=== PATIENT | male | born 1960 | race Caucasian/White ===

== ENCOUNTER → 2019-11-30 14:00 | Outpatient (BNVA) | payer OTHER, SELFPAY | PROVIDERS: PCP Physician Assistant Medical; Referring Provider Physician Assistant Medical; Visit Provider Physician Assistant | DX: Z01.812 Encounter for preprocedural laboratory examination (principal); M16.12 Unilateral primary osteoarthritis, left hip; G89.29 Other chronic pain; M54.9 Dorsalgia, unspecified; G62.9 Polyneuropathy, unspecified; I10 Essential (primary) hypertension; D64.9 Anemia, unspecified; F41.8 Other specified anxiety disorders; Z91.012 Allergy to eggs | CPT/HCPCS: 99214 ==

== ENCOUNTER 2019-12-04 05:34 | Inpatient (IN) | payer OTHER, SELFPAY ==
[2019-11-21 11:41] VITALS: BMI 28.7
[2019-11-21 12:18] VITALS: BP 137/74; PULSE 69; RESP 16; O2SAT 98
--- NOTE | 2019-11-21 12:26 | HO.ANESPROP2 ---
Documented by User: Annabella Martínez 12/01/19 08:29 HPI - Anesthesia Eval Consult details Narrative: 59 yo M for L FAVIAN pending labs PCP cleared, renal cleared (Was sent for urgent renal eval by PCP for worsening creat. OK to proceed by renal if creat stabilizes/improves. Creat 1.9 to 1.7) [facility] Past Medical History Medical History Anemia Anxiety Chronic back pain Degenerative disc disease Depression Hip pain History of intravenous drug abuse History of positive PPD Hx of chronic kidney disease Hx of hepatitis C Hypertension Knee pain Low back pain Peripheral neuropathy Sleep apnea Thrombocytopenia Family History Family History Father No problems noted. Mother No problems noted. Family history of problems with anesthesia: No Surgical History Surgical History History of right hip replacement Status post total hip resurfacing History of Problems with Anesthesia: No Social History Social History Household Members Other:: SISTER Are you a primary caregiver services home to a significant other at home: No Do you presently have visiting nurse or other home services: No Smoking Status: Current every day smoker Packs Per Day: 1 Cigarettes Per Day: 20.0 Years Smoked: 50 Patient Interested in Nicotine Replacement: No Patient Given Instructions on How to Stop Smoking: Yes Date Education Initiated: 11/21/19 Second Hand Smoke Exposure: Yes Use of substances other than those prescribed or required for medical reasons: No Have you been hit, kicked, punched, or otherwise hurt by someone within the past year? If so, by whom?: No Spiritual Healthcare Practices: NONE Scientologist Healthcare Practices: NONE Cultural Healthcare Practices: NONE Advance Directives: No Advance Directives Information Provided: No Advance Directives on File: No Recently lost weight without trying: No Meds Allergies Allergy/AdvReac Type Severity Reaction Status Date / Time eggs Allergy Unknown Unknown Uncoded 11/21/19 12:09 Home Medications Medication Instructions Recorded Confirmed Type amlodipine 10 mg tablet 10 mg PO DAILY 11/06/19 11/21/19 History clonidine HCl 0.1 mg tablet 0.1 mg PO TID 11/06/19 11/21/19 History diazepam 10 mg tablet 10 mg PO TID PRN 11/06/19 11/21/19 History lisinopril 20 mg tablet 20 mg PO DAILY 11/06/19 11/21/19 History nicotine 21 mg/24 hr daily 1 patch TOPICAL DAILY 11/06/19 11/21/19 History transdermal patch omeprazole 40 mg capsule,delayed 40 mg PO DAILY 11/06/19 11/21/19 History release pregabalin 200 mg capsule 200 mg PO BID cap 11/06/19 11/21/19 History Exam Exam Date and Time: November 21, 2019 1226 Height,Weight and Vital Signs: Height 5 ft 10 in Weight 90.718 kg Last Vital Signs Pulse 69 11/21/19 12:18 Resp 16 11/21/19 12:18 BP 137/74 11/21/19 12:18 Pulse Ox 98 11/21/19 12:18 Pertinent Lab Results Pertinent Lab Results: Laboratory Tests 08/23/19 11/21/19 15:40 13:26 WBC 9.9 Hgb 14.1 Hct 43.3 Plt Count 164 Sodium 138 Potassium 4.4 Chloride 104 BUN 24 H Creatinine 1.76 H Narrative Narrative: EKG 08/23/19: SB @55, marked SA Airway Mallampati Class: II TM Dist: >3cm Neck ROM: Limited (r/t to disc disease, no prev surgery) Denture: Upper and Lower (Doesnt wear) Heart: RRR Lungs: CTAB Assessment and Plan Assessment Anesthesia Assessment: Anesthesia Plan Discussed, Smoking Cess. Discussed and PAT Visit Documented by User: Tomás Monte MD 12/04/19 07:32 PMFSH Past Medical History Medical History Anemia Anxiety Chronic back pain Degenerative disc disease Depression Hip pain History of intravenous drug abuse History of positive PPD Hx of chronic kidney disease Hx of hepatitis C Hypertension Knee pain Low back pain Peripheral neuropathy Sleep apnea Thrombocytopenia Family History Family History Father No problems noted. Mother No problems noted. Surgical History Surgical History History of right hip replacement Status post total hip resurfacing Social History Social History Household Members Other:: SISTER Are you a primary caregiver services home to a significant other at home: No Do you presently have visiting nurse or other home services: No Smoking Status: Current every day smoker Packs Per Day: 1 Cigarettes Per Day: 20.0 Years Smoked: 50 Patient Interested in Nicotine Replacement: No Patient Given Instructions on How to Stop Smoking: Yes Date Education Initiated: 11/21/19 Second Hand Smoke Exposure: Yes Use of substances other than those prescribed or required for medical reasons: No Have you been hit, kicked, punched, or otherwise hurt by someone within the past year? If so, by whom?: No Spiritual Healthcare Practices: NONE Scientologist Healthcare Practices: NONE Cultural Healthcare Practices: NONE Advance Directives: No Advance Directives Information Provided: No Advance Directives on File: No Recently lost weight without trying: No Meds Allergies Allergy/AdvReac Type Severity Reaction Status Date / Time eggs Allergy Unknown Unknown Uncoded 11/21/19 12:09 Home Medications Medication Instructions Recorded Confirmed Type amlodipine 10 mg tablet 10 mg PO DAILY 11/06/19 11/21/19 History clonidine HCl 0.1 mg tablet 0.1 mg PO TID 11/06/19 11/21/19 History diazepam 10 mg tablet 10 mg PO TID PRN 11/06/19 11/21/19 History lisinopril 20 mg tablet 20 mg PO DAILY 11/06/19 11/21/19 History nicotine 21 mg/24 hr daily 1 patch TOPICAL DAILY 11/06/19 11/21/19 History transdermal patch omeprazole 40 mg capsule,delayed 40 mg PO DAILY 11/06/19 11/21/19 History release pregabalin 200 mg capsule 200 mg PO BID cap 11/06/19 11/21/19 History Assessment and Plan Assessment Anesthesia Assessment: Anesthesia Plan Discussed and PAT Visit Final Anesthetic Review NPO: Yes ASA Class: III Final Preanesthetic Review: No Changes in Pt Med Stat, Meds/Allgs Chart Reviewed, Consent Obtained/Reviewed and Anes Risks/Benef Reviewed Patient Risk: Intermediate Procedure Risk: Intermediate Anesthetic Plan Anesthetic Plan: GA Disposition: Standard PACU
[2019-11-21 14:05] LABS: MANUAL DIFF FLAG NO
[2019-11-21 14:09] LABS: Basophils Absolute Auto 0.1 X10*3/uL (0.0-0.2); Basophils Percent Auto 0.7 % (0-2); Eosinophils Absolute Auto 0.4 X10*3/uL (0.0-0.4); Eosinophils Percent Auto 4.4 % (0-4); Hematocrit 43.3 % (42-52); Hemoglobin 14.1 g/dl (14.0-18.0); Imm Gran Abs Auto 0.04 X10*3/uL (0.00-0.03); Imm Gran Pct Auto 0.4 % (0.0-0.4); Lymphocytes Absolute Auto 3.2 X10*3/uL (1.2-4.9); Lymphocytes Percent Auto 32.6 % (20-40); Mean Corpuscular HGB Conc 32.6 g/dl (31.0-36.0); Mean Corpuscular Hemoglobin 31.8 pg (27.0-33.0); Mean Corpuscular Volume 97.5 fL (80-98); Mean Platelet Volume 10.7 fL (9.4-12.4); Monocytes Absolute Auto 0.6 X10*3/uL (0.1-1.2); Monocytes Percent Auto 5.7 % (2-11); Neutrophils Absolute Auto 5.6 X10*3/uL (2.0-8.3); Neutrophils Percent Auto 56.2 % (45-73); Platelet Count 164 X10*3/uL (160-400); Red Blood Count 4.44 X10*6/uL (4.60-5.80); Red Cell Distribution Width 13.2 % (11.0-16.0); White Blood Count 9.9 X10*3/uL (4.8-10.8)
[2019-11-21 15:17] LABS: MRSA Nasal PCR NEGATIVE (Negative); SA Nasal PCR NEGATIVE (Negative)
--- NOTE | 2019-12-03 20:22 | MHC.SHP ---
Pre-Procedural Eval Section A The patient is an INPATIENT: No Changes since office visit: No Cold of Flu in the past 2 weeks, No New Medical Problems, No Changes in Medication and No Patient answered all questions The History & Physical has been completed within 30 days and I have reviewed it.: Yes Section B Chief Complaint: Osteoarthritis Left Hip, Avascular Necrosis Allergies: Allergies Allergy/AdvReac Type Severity Reaction Status Date / Time eggs Allergy Unknown Unknown Uncoded 11/21/19 12:09 Plan Patient has been examined and remains a candidate for the planned procedure
[2019-12-04] VITALS (15 sets, daily range): BP systolic 138–196; BP diastolic 87–107; PULSE 74–112; RESP 16–20; TEMP 36.1–37.7; O2SAT 92–99
[2019-12-04 06:59] LABS: SARS COV2 PCR INHOUSE NEGATIVE (Negative)
[2019-12-04] MEDS: Gabapentin 600 MG TABLET PO (07:02)
[2019-12-04] MEDS: oxyCODONE HCl ER 10 MG TAB.ER.12H PO (07:03)
[2019-12-04] MEDS: Lactated Ringers 1,000 ML 100 ML IVCONT ×2 (07:03→13:25)
--- NOTE | 2019-12-04 09:29 | PM.PRCOR ---
Brief Operative Note Date of procedure: 12/04/19 Pre-op diagnosis: OA LEFT HIP Post-op diagnosis: same Procedure: LEFT FAVIAN Anesthesia: ZAIREA Surgeon: Sharon Fink Program Manager Environmental Planning: Federico Cerrato Estimated blood loss (mL): 150 Condition: stable Disposition: PACU
[2019-12-04] MEDS: oxyCODONE HCl Immed Release 5 MG TABLET PO (10:43)
[2019-12-04] MEDS: ceFAZolin Sodium/Dextrose,Iso 2 GM/50 ML PIGGYBACK IV (13:34)
[2019-12-04] MEDS: Acetaminophen 325 MG TABLET 650 MG PO ×2 (13:47→19:54)
--- NOTE | 2019-12-04 14:01 | P.HPIM_ITS ---
History of Present Illness Date of Service: 12/04/19 <Tabitha Adorno NP - Last Filed: 12/04/19 14:17> Chief Complaint: Medical Consultation <Tabitha Adorno NP - Last Filed: 12/04/19 14:17> 59 year old man with history of Hypertension, GERD and chronic pain admitted by orthopedic surgery and is status post Left hip arthroplasty. He has a moderate amount of pain at this time. His vital signs are stable. No new labs drawn. She has been able to drink with no nausea. He is resting in bed with no acute medical complaints. <Tabitha Adorno NP - Last Filed: 12/04/19 14:17> Review of Systems Review of Systems: Denies any recent fever chills or decrease in appetite respiratory denies any shortness of breath or cough cardiovascular is adjustment of any PND or edema gastrointestinal denies any dysphagia abdominal pain nausea vomiting or diarrhea genitourinary denies any dysuria frequency or hematuria musculoskeletal left hip pain neuropsych denies any weakness or seizures all other systems reviewed are negative <Tabitha Adorno NP - Last Filed: 12/04/19 14:17> [facility] Medical History: Medical History (Updated 12/08/19 @ 00:00 by Carmita Funez) Anemia Anxiety Chronic back pain Degenerative disc disease Depression Hip pain History of intravenous drug abuse History of positive PPD Hx of chronic kidney disease Hx of hepatitis C Hypertension Knee pain Low back pain Peripheral neuropathy Primary osteoarthritis of left hip Sleep apnea Thrombocytopenia <Tabitha Adorno NP - Last Filed: 12/04/19 14:17> Family History: Family History Father No problems noted. Mother No problems noted. <Tabitha Adorno NP - Last Filed: 12/04/19 14:17> Surgical History: Surgical History (Updated 12/06/19 @ 10:13 by Federico Cerrato PA-C) History of right hip replacement Status post total hip resurfacing <Tabitha Adorno NP - Last Filed: 12/04/19 14:17> Social History: Social History Household Members: Family Housing: Apartment Smoking Status: Current every day smoker Packs Per Day: 1 Cigarettes Per Day: 20.0 Years Smoked: 50 Second Hand Smoke Exposure: No service: Yes (AT 16 YRS OF AGE NONE NOW) Current occupational status: disabled <Tabitha Adorno NP - Last Filed: 12/04/19 14:17> Meds Allergies/Adverse reactions: Allergies Allergy/AdvReac Type Severity Reaction Status Date / Time eggs Allergy Unknown Unknown Uncoded 11/21/19 12:09 <Tabitha Adorno NP - Last Filed: 12/04/19 14:17> Home medications: Home Medications Medication Instructions Recorded Confirmed Type amlodipine 10 mg PO DAILY 12/04/19 12/04/19 History clonidine HCl 0.1 mg PO TID 12/04/19 12/04/19 History diazepam 10 mg PO TID PRN 12/04/19 12/04/19 History duloxetine 30 mg PO BID 12/04/19 12/04/19 History lisinopril 20 mg PO DAILY 12/04/19 12/04/19 History omeprazole 40 mg PO DAILY 12/04/19 12/04/19 History pregabalin 200 mg PO BID 12/04/19 12/04/19 History ramelteon 8 mg PO BEDTIME 12/04/19 12/04/19 History trazodone 50 mg PO BEDTIME 12/04/19 12/04/19 History <Tabitha Adorno NP - Last Filed: 12/04/19 14:17> Physical Exam Vital Signs and Narrative: Vital Signs: Last Vital Signs Temp 99.0 F 12/04/19 12:25 Pulse 105 H 12/04/19 12:25 Resp 18 12/04/19 12:25 BP 152/99 H 12/04/19 12:25 Pulse Ox 97 12/04/19 12:25 Body Mass Index 28.7 <Tabitha Adorno NP - Last Filed: 12/04/19 14:17> Appearing in no acute distress head is normocephalic atraumatic eyes pupils are PERRLA sclera is anicteric mouth throat mucous membranes are intact and moist neck is supple no lymphadenopathy, no JVD noted lung sounds are clear to auscultation heart regular rate rhythm, clear S1, S2 positive bowel sounds, abdomen is soft, nontender musculoskeletal left hip dressing clean dry and intact. neuro patient is alert x3, no focal deficits <Tabitha Adorno NP - Last Filed: 12/04/19 14:17> Results Labs Labs: Laboratory Tests 11/21/19 11/21/19 12/04/19 12:30 13:26 05:40 WBC 9.9 RBC 4.44 L Hgb 14.1 Hct 43.3 MCV 97.5 MCH 31.8 MCHC 32.6 RDW 13.2 Plt Count 164 MPV 10.7 Immature Gran % (Auto) 0.4 Neut % (Auto) 56.2 Lymph % (Auto) 32.6 [place] % (Auto) 5.7 Eos % (Auto) 4.4 H Baso % (Auto) 0.7 Lymph # (Auto) 3.2 [place] # (Auto) 0.6 Eos # (Auto) 0.4 Baso # (Auto) 0.1 Abs Immat Gran (auto) 0.04 H Absolute Neuts (auto) 5.6 Absolute Nucleated RBC 0.000 Nucleated RBC % (auto) 0.0 Nasal Screen MRSA (PCR) NEGATIVE Nasal S. aureus Screen NEGATIVE Nasal MRSA/S.aureus Interp SEE NOTE Coronavirus (PCR) NEGATIVE Blood Type Antibody Screen 12/04/19 06:28 WBC RBC Hgb Hct MCV MCH MCHC RDW Plt Count MPV Immature Gran % (Auto) Neut % (Auto) Lymph % (Auto) [place] % (Auto) Eos % (Auto) Baso % (Auto) Lymph # (Auto) [place] # (Auto) Eos # (Auto) Baso # (Auto) Abs Immat Gran (auto) Absolute Neuts (auto) Absolute Nucleated RBC Nucleated RBC % (auto) Nasal Screen MRSA (PCR) Nasal S. aureus Screen Nasal MRSA/S.aureus Interp Coronavirus (PCR) Blood Type O Positive Antibody Screen NEGATIVE <Tabitha Adorno NP - Last Filed: 12/04/19 14:17> Assessment and Plan (1) Primary osteoarthritis of left hip: (2) Depression: (3) Hypertension: (4) Hx of chronic kidney disease: Problem details: CKD St 3-4 <Tabitha Adorno NP - Last Filed: 12/04/19 14:17> 59-year-old man admitted by Orthopedic surgery and is status post left total hip arthroplasty. Left total hip arthroplasty. Management as per surgical team. Pain management. Hypertension. Stable blood pressure. Continue home medication. Avoid postoperative hypotension. CKD. Will check BMP for creatinine level. GERD. Continue PPI. Depression. Continue home medications. DVT prophylaxis with full-dose aspirin. Discussed with Dr. Duque Full code <Tabitha Adorno NP - Last Filed: 12/04/19 14:17>
[2019-12-04] MEDS: Morphine Sulfate 2 MG/ML CARTRIDGE IVPUSH (16:21)
[2019-12-04] MEDS: 0.9 % Sodium Chloride Flush 3 ML SYRINGE IVFLUSH (16:22)
[2019-12-04 17:40] LABS: Anion Gap 14 (12-20); Blood Urea Nitrogen 20 mg/dL (9-16); Carbon Dioxide 24 mmol/L (22-29); Chloride 108 mmol/L (96-108); Creatinine Clr Calc Pharmacy 51.1; Estimated Glomerular Filt Rate 40; Glucose Random 195 mg/dL (60-115); Sodium 142 mmol/L (135-145)
[2019-12-04 17:47] LABS: Calcium 8.1 mg/dL (8.4-10.2)
[2019-12-04] MEDS: oxyCODONE HCl Immed Release 5 MG TABLET 10 MG PO (19:55)
[2019-12-05] VITALS (12 sets, daily range): BP systolic 100–184; BP diastolic 59–106; PULSE 99–118; RESP 19; TEMP -17.2–36.7; O2SAT 94–98
--- NOTE | 2019-12-05 | ECG_ITS ---
Test Reason : tachy Blood Pressure : / mmHG Vent. Rate : 117 BPM Atrial Rate : 117 BPM P-R Int : 148 ms QRS Dur : 084 ms QT Int : 314 ms P-R-T Axes : 049 031 093 degrees QTc Int : 438 ms Sinus tachycardia Nonspecific ST and T wave abnormality Abnormal ECG Compare to at 15:33:23 QRS axis Shifted left Heart rate has increased Nonspecific ST and T wave abnormality is new Referred By: Phoebe Wolf Electronically Signed By:PARDEEP METZ MD
[2019-12-05] MEDS: cloNIDine HCL 0.1 MG TABLET PO ×3 (00:27→21:53)
[2019-12-05] MEDS: Pregabalin 200 MG CAPSULE PO ×3 (00:27→21:53)
[2019-12-05] MEDS: DULoxetine HCl 30 MG CAPSULE.DR PO ×3 (00:28→21:53)
[2019-12-05] MEDS: oxyCODONE HCl Immed Release 5 MG TABLET 10 MG PO ×4 (00:29→18:11)
[2019-12-05] MEDS: hydrALAZINE HCl 20 MG/ML VIAL 5 MG IVPUSH (00:29)
[2019-12-05] MEDS: traZODone HCL 50 MG TABLET PO ×2 (00:29→21:53)
[2019-12-05] MEDS: Acetaminophen 325 MG TABLET 650 MG PO ×4 (01:44→18:12)
[2019-12-05] MEDS: Lactated Ringers 1,000 ML 100 ML IVCONT (04:12)
[2019-12-05] MEDS: Morphine Sulfate 2 MG/ML CARTRIDGE IVPUSH (06:09)
[2019-12-05 06:11] LABS: MANUAL DIFF FLAG NO
[2019-12-05 06:19] LABS: Basophils Absolute Auto 0.1 X10*3/uL (0.0-0.2); Basophils Percent Auto 0.4 % (0-2); Eosinophils Percent Auto 0.1 % (0-4); Hemoglobin 10.5 g/dl (14.0-18.0); Imm Gran Abs Auto 0.07 X10*3/uL (0.00-0.03); Imm Gran Pct Auto 0.5 % (0.0-0.4); Lymphocytes Absolute Auto 2.3 X10*3/uL (1.2-4.9); Mean Corpuscular HGB Conc 32.8 g/dl (31.0-36.0); Mean Corpuscular Hemoglobin 31.9 pg (27.0-33.0); Mean Corpuscular Volume 97.3 fL (80-98); Mean Platelet Volume 10.8 fL (9.4-12.4); Monocytes Absolute Auto 1.5 X10*3/uL (0.1-1.2); Monocytes Percent Auto 10.2 % (2-11); Neutrophils Absolute Auto 10.4 X10*3/uL (2.0-8.3); Neutrophils Percent Auto 72.8 % (45-73); Platelet Count 127 X10*3/uL (160-400); Red Blood Count 3.29 X10*6/uL (4.60-5.80); Red Cell Distribution Width 13.1 % (11.0-16.0); White Blood Count 14.3 X10*3/uL (4.8-10.8)
--- NOTE | 2019-12-05 06:26 | PC.NURSE ---
pt had a reported BP of 196/107. Pt stated that he was not taking his home blood pressure meds. MD was made aware. hydralazine was orders. After 1 hr after med given; Bp was still high, 174/95. MD notified. Md ordered EKG. EKG was shown to MD. No follow up recommended.
[2019-12-05 06:48] LABS: Anion Gap 13 (12-20); Blood Urea Nitrogen 20 mg/dL (9-16); Carbon Dioxide 26 mmol/L (22-29); Chloride 106 mmol/L (96-108); Creatinine Clr Calc Pharmacy 60.5; Estimated Glomerular Filt Rate 49; Glucose Random 123 mg/dL (60-115); Potassium 3.9 mmol/l (3.3-5.1); Sodium 141 mmol/L (135-145)
--- NOTE | 2019-12-05 07:00 | XR_ITS ---
EXAMINATION: XR HIP, LEFT CLINICAL INFORMATION: Left hip replacement COMPARISON: Previous x-rays most recent March 2019 TECHNIQUE: AP view of the lower pelvis and hips and shoot through lateral view of the left hip FINDINGS: There is a new left hip replacement in satisfactory position. No fracture or dislocation is seen. There are postoperative changes to the soft tissues. There is a right hip replacement in satisfactory position. XR/XR hip LT w PEL1V IMPRESSION: Satisfactory appearance of left hip replacement.
[2019-12-05] MEDS: amLODIPine Besylate 10 MG TABLET PO (08:21)
[2019-12-05] MEDS: Omeprazole 40 MG CAPSULE.DR PO (08:21)
[2019-12-05] MEDS: lisinopriL 20 MG TABLET PO (08:21)
--- NOTE | 2019-12-05 09:48 | PM.PNORT ---
Subjective Subjective Principal diagnosis: s/p LT FAVIAN Interval history: POD 1 s/p LT FAVIAN He has been out of bed, states he is sore but doing well, denies cp. sob, dizziness. Physical Exam Vital Signs: Vital Signs: Vital Signs Temp Pulse Resp BP Pulse Ox 12/05/19 05:00 98.0 F 99 19 118/76 98 12/05/19 01:45 116 H 170/99 H 12/05/19 01:30 118 H 166/106 H 12/05/19 01:15 114 H 173/97 H 12/05/19 01:00 114 H 167/94 H 12/05/19 00:45 114 H 179/100 H 12/05/19 00:30 1 F L 115 H 184/101 H 12/05/19 00:29 110 H 184/101 H 12/05/19 00:27 110 H 174/95 H 12/04/19 23:19 196/107 H 12/04/19 23:00 99.8 F 112 H 20 97 12/04/19 19:51 99.9 F 20 167/99 H 99 12/04/19 16:25 98.7 F 106 H 19 159/87 H 98 12/04/19 12:25 99.0 F 105 H 18 152/99 H 97 12/04/19 11:37 97.7 F 98 16 165/97 H 98 12/04/19 11:22 91 16 168/105 H 97 12/04/19 11:07 94 18 170/105 H 97 12/04/19 10:52 89 16 155/107 H 95 12/04/19 10:37 89 16 165/106 H 94 12/04/19 10:22 87 16 151/106 H 93 12/04/19 10:17 90 16 140/90 H 92 12/04/19 10:12 86 16 138/94 H 93 12/04/19 10:07 97.8 F 90 16 142/96 H 95 Body Mass Index 28.7 Const: General: cooperative, healthy appearing and no acute distress Resp: Effort & Inspection: normal respiratory effort and able to speak in complete sentences Cardio: Rate: regular rate Peripheral pulses: Peripheral pulses 2+ throughout GI: Inspection: Yes normal to inspection Palpation (GI): Soft to palpation Skin: General skin exam: no rashes or lesions noted Extrem: Other: Left hip bandage intact, no drainage, no erythema sensation intact Progress Note: A&P Assessment and plan (1) History of total left hip replacement: Status: Acute Assessment and Plan: Continue pain mgmnt Begin asa for dvt ppx begin PT /OT for LT FAVIAN Dispo planning-Pending PT eval, pain mgmnt Fall Risk Details Current Medications: Current Medications Generic Name Dose Route Start Last Admin Trade Name Freq PRN Reason Stop Dose Admin Acetaminophen 650 mg 12/04/19 13:00 12/05/19 08:22 Acetaminophen 325 Mg Tablet PO 650 mg Q6H NINO Administration Amlodipine Besylate 10 mg 12/05/19 09:00 12/05/19 08:21 Amlodipine Besylate 10 Mg Tablet PO 10 mg DAILY NINO Administration Protocol Aspirin 325 mg 12/05/19 21:00 Aspirin 325 Mg Tablet PO BID NINO Clonidine HCl 0.1 mg 12/04/19 23:45 12/05/19 08:21 Clonidine Hcl 0.1 Mg Tablet PO 0.1 mg TID NINO Administration Protocol Diazepam 10 mg 12/04/19 23:54 Diazepam 10 Mg Tablet PO TID PRN anxiety Duloxetine HCl 30 mg 12/04/19 23:45 12/05/19 08:21 Duloxetine Hcl 30 Mg Capsule. PO 30 mg BID NINO Administration Lactated Ringer's 1,000 mls @ 100 mls/hr 12/04/19 06:00 12/05/19 04:12 Lr IVCONT 100 mls/hr .Q10H NINO Administration Lisinopril 20 mg 12/05/19 09:00 12/05/19 08:21 Lisinopril 20 Mg Tablet PO 20 mg DAILY NINO Administration Protocol Morphine Sulfate 2 mg 12/04/19 12:25 12/05/19 06:09 Morphine Sulfate 2 Mg/Ml Cartridge IVPUSH 2 mg Q2H PRN Administration Pain, Severe (Pain Scale 7-10) Naloxone HCl 0.2 mg 12/04/19 12:25 Naloxone Hcl 0.4 Mg/Ml Vial IVPUSH Q2M PRN Excessive sedation or RR < 8 Omeprazole 40 mg 12/05/19 09:00 12/05/19 08:21 Omeprazole 40 Mg Capsule. PO 40 mg DAILY NINO Administration Oxycodone HCl 10 mg 12/04/19 13:00 12/05/19 08:21 Oxycodone Hcl Immed Release 5 Mg Tablet PO 10 mg Q6H NINO Administration Pregabalin 200 mg 12/04/19 23:45 12/05/19 08:22 Pregabalin 200 Mg Capsule PO 200 mg BID NINO Administration Sodium Chloride 3 ml 12/04/19 16:00 12/05/19 07:12 0.9 % Sodium Chloride Flush 3 Ml Syringe IVFLUSH Not Given QSHIFT NINO Trazodone HCl 50 mg 12/04/19 23:45 12/05/19 00:29 Trazodone Hcl 50 Mg Tablet PO 50 mg BEDTIME NINO Administration Time Spent With Patient Time: Total time spent is greater than 50% in coordination of care (as documented) at patient's floor/unit and/or counseling patient: Time with patient: 15 - 24 minutes
--- NOTE | 2019-12-05 10:20 | HO.PM.IMPN ---
Subjective Subjective Date of Service: 12/05/19 Interval History: no complaints Gastrointestinal Gastrointestinal: Reports no additional gastrointestinal complaints Genitourinary Genitourinary: Reports no additional male genitourinary complaints Physical Exam Vital Signs: Vital Signs: Vital Signs Temp Pulse Resp BP Pulse Ox 12/05/19 05:00 98.0 F 99 19 118/76 98 12/05/19 01:45 116 H 170/99 H 12/05/19 01:30 118 H 166/106 H 12/05/19 01:15 114 H 173/97 H 12/05/19 01:00 114 H 167/94 H 12/05/19 00:45 114 H 179/100 H 12/05/19 00:30 1 F L 115 H 184/101 H 12/05/19 00:29 110 H 184/101 H 12/05/19 00:27 110 H 174/95 H 12/04/19 23:19 196/107 H 12/04/19 23:00 99.8 F 112 H 20 97 12/04/19 19:51 99.9 F 20 167/99 H 99 12/04/19 16:25 98.7 F 106 H 19 159/87 H 98 12/04/19 12:25 99.0 F 105 H 18 152/99 H 97 12/04/19 11:37 97.7 F 98 16 165/97 H 98 12/04/19 11:22 91 16 168/105 H 97 12/04/19 11:07 94 18 170/105 H 97 12/04/19 10:52 89 16 155/107 H 95 12/04/19 10:37 89 16 165/106 H 94 12/04/19 10:22 87 16 151/106 H 93 Body Mass Index 28.7 General: AO X 3, no acute distress Resp: CTA bilateral CVS: S1,S2,RRR GI: soft, non tender, non distended Neuro: motor grossly intact Psych: appropriate affect Objective Data Current Medications Generic Name Dose Route Start Last Admin Trade Name Freq PRN Reason Stop Dose Admin Acetaminophen 650 mg 12/04/19 13:00 12/05/19 08:22 Acetaminophen 325 Mg Tablet PO 650 mg Q6H NINO Administration Amlodipine Besylate 10 mg 12/05/19 09:00 12/05/19 08:21 Amlodipine Besylate 10 Mg Tablet PO 10 mg DAILY NINO Administration Protocol Aspirin 325 mg 10/27/20 21:00 Aspirin 325 Mg Tablet PO BID NINO Clonidine HCl 0.1 mg 12/04/19 23:45 12/05/19 08:21 Clonidine Hcl 0.1 Mg Tablet PO 0.1 mg TID NINO Administration Protocol Diazepam 10 mg 12/04/19 23:54 Diazepam 10 Mg Tablet PO TID PRN anxiety Duloxetine HCl 30 mg 12/04/19 23:45 12/05/19 08:21 Duloxetine Hcl 30 Mg Capsule.Dr PO 30 mg BID NINO Administration Lactated Ringer's 1,000 mls @ 100 mls/hr 12/04/19 06:00 12/05/19 04:12 Lr IVCONT 100 mls/hr .Q10H NINO Administration Lisinopril 20 mg 12/05/19 09:00 12/05/19 08:21 Lisinopril 20 Mg Tablet PO 20 mg DAILY NINO Administration Protocol Morphine Sulfate 2 mg 12/04/19 12:25 12/05/19 06:09 Morphine Sulfate 2 Mg/Ml Cartridge IVPUSH 2 mg Q2H PRN Administration Pain, Severe (Pain Scale 7-10) Naloxone HCl 0.2 mg 12/04/19 12:25 Naloxone Hcl 0.4 Mg/Ml Vial IVPUSH Q2M PRN Excessive sedation or RR < 8 Omeprazole 40 mg 12/05/19 09:00 12/05/19 08:21 Omeprazole 40 Mg Capsule. PO 40 mg DAILY NINO Administration Oxycodone HCl 10 mg 12/04/19 13:00 12/05/19 08:21 Oxycodone Hcl Immed Release 5 Mg Tablet PO 10 mg Q6H NINO Administration Pregabalin 200 mg 12/04/19 23:45 12/05/19 08:22 Pregabalin 200 Mg Capsule PO 200 mg BID NINO Administration Sodium Chloride 3 ml 12/04/19 16:00 12/05/19 07:12 0.9 % Sodium Chloride Flush 3 Ml Syringe IVFLUSH Not Given QSHIFT NINO Trazodone HCl 50 mg 12/04/19 23:45 12/05/19 00:29 Trazodone Hcl 50 Mg Tablet PO 50 mg BEDTIME NINO Administration Labs CBC & Chem 7: 12/05/19 05:52 12/05/19 05:52 Assessment and Plan (1) Primary osteoarthritis of left hip: Status: Acute (2) Depression: Status: Acute (3) Hypertension: Status: Acute (4) Hx of chronic kidney disease: Problem details: CKD St 3-4 Status: Acute Assessment and Plan: 59-year-old man admitted by Orthopedic surgery and is status post left total hip arthroplasty. Left total hip arthroplasty. Management as per surgical team. Pain management. Hypertension Stable blood pressure. Continue home medication. CKD stable GERD. Continue PPI. Depression. Continue home medications. DVT prophylaxis with full-dose aspirin. will sign off for now, please recall if needed
--- NOTE | 2019-12-05 10:55 | MHC.CM.PN ---
NURSE BELLHOP SERVICE CAPTAIN NOTE ELECTRONIC MEDICAL RECORD REVIEWED ALONG WITH CASE DISCUSSED WITH STAFF NURSE . MET WITH PATIENT AND EXPLAINED THE ROLE OF THE NURSE BELLHOP SERVICE CAPTAIN IN THE [facility], MET WITH PATIENT , EDUCATED ABOUT THE IMPROTANCE OF HAVING A HEALTH CARE PROXY. PATIENT LIVES WITH HIS SISTER IN [place] HE REPRTS THAT SHE IS HIS WHOLESALE PARTS SALESPERSON HE NEEDS ASSISTANCE AT TIME WITH DRESSING HE HAS A WALKER AT HOME THAT HE USES FOR AMBULATION , HE HAS NO VNA .HE REPORTS PAST HISTORY OF DRUG ABUSE AT 16 YEARS OF AGE PATIENT REPORTS THAT HE HAS CHRONIC PAIN AND PERIPHERALLLNPATHY, CONFIRMED HIS PCP B[facility] HERBERT AND REPORTS HE HAS BOTH [facility] MEDICARE MEDICAIDE I REVIEW WITH HIM AREA AGENCY HE AT FIRST CHOSE THE [facility] ( HEY DECLINED THEY DO NOT SERVICE THE [facility]. HE THEN CHOSE [facility] . INIATED REFERRAL TO THEM . DISCHARGE PLAN HOME WITH HIS SISTER SURGICAL FOLLOW UP PER DISCHARGE SUMMARY/INSTRUCTIONS INIATED REFERRAL TO [facility] TRANSPORTATION FAMILY SURGICAL FOLLOW UP[,POST HOSPITAL DISCHARGE SPOKE WITH RUBY AT [facility] INSURTANCE [facility] IS ONE OF THEIR CONTRACTS AND I NEED TO NOTIFY HER THE DAY OF DISCHARGE
--- NOTE | 2019-12-05 15:19 | MHC.CM.PN ---
nurse mauricio seaport planning manager note barrier in finding a vna : lives in [facility] many OF THE VNA ARE NOT CONTRACTED WITH [facility] INSURANCE VS NOT [facility] I TRIED THE FOLLOWING ( EXCELL COMFIORT PLUS, [facility] vna, ) sohail also to patti bundy ave[facility] elara kindered at home working with the liason from [facility] delvin paulson) regular senior care provider to continue to follow
--- NOTE | 2019-12-05 16:12 | HO.POSTANES ---
Post Anesthesia Evaluation Post Anesthesia Evaluation Vital Signs: Vital Signs Temp Pulse Resp BP Pulse Ox 12/05/19 13:00 97.8 F 101 H 19 100/59 L 94 12/05/19 05:00 98.0 F 99 19 118/76 98 Anesthesia: Spinal Mental Status: Awake Pain Control: Satisfactory Nausea/Vomiting: None Hydration: Adequate Anesthesia-Related Issues: No Anes. Related Issues
[2019-12-05] MEDS: 0.9 % Sodium Chloride Flush 3 ML SYRINGE IVFLUSH ×2 (17:40→21:54)
[2019-12-05] MEDS: Aspirin 325 MG TABLET PO (21:53)
[2019-12-06] MEDS: oxyCODONE HCl Immed Release 5 MG TABLET 10 MG PO ×2 (00:02→06:30)
[2019-12-06] MEDS: Acetaminophen 325 MG TABLET 650 MG PO ×2 (00:03→06:30)
[2019-12-06 01:00] VITALS: BP 113/60; PULSE 101; RESP 18; TEMP 36.7; O2SAT 92
[2019-12-06 04:00] VITALS: BP 119/61; PULSE 98; RESP 16; TEMP 36.6; O2SAT 90
[2019-12-06] MEDS: 0.9 % Sodium Chloride Flush 3 ML SYRINGE IVFLUSH (07:21)
[2019-12-06 07:42] VITALS: BP 101/50; PULSE 92; RESP 17; TEMP 37; O2SAT 92
[2019-12-06] MEDS: Omeprazole 40 MG CAPSULE.DR PO (08:15)
[2019-12-06] MEDS: Aspirin 325 MG TABLET PO (08:15)
[2019-12-06] MEDS: Pregabalin 200 MG CAPSULE PO (08:15)
[2019-12-06] MEDS: DULoxetine HCl 30 MG CAPSULE.DR PO (08:15)
--- NOTE | 2019-12-06 10:12 | P.DS_ITS ---
DS: Providers Provider Date of admission: 12/04/19 05:34 Primary care physician: MARLENY Huerta Consults: 12/04/19 12:25 Consult to Hospitalist Routine Consulting Provider: Hospitalist Reason for consultation: medical issues DS: Diagnosis Discharge Diagnosis (1) History of total left hip replacement: Status: Acute Problem details: Mr. Stoll is a 59-year-old gentleman who presented to the office for pain in the left hip he was found have osteoarthritis of the left hip and failed all conservative measures therefore he consented to move forward with left hip arthroplasty. DS: Summary Hospital Course Hospital Course: Mr. conteh underwent a successful left total hip arthroplasty was transferred to PACU then to the floor he recovered during his stay his vitals were stable afebrile at 98.6 labs unremarkable hemoglobin 10.5 hematocrit 32.0 postop day 1 he was started on aspirin 325 mg p.o. b.i.d. for DVT prophylaxis and he received physical therapy and occupational therapy services twice a day. Prior to discharge his Aquacel dressing was changed incision clean dry and intact oxygen applied and plan is to be discharged home with VNA services. Time spent discussing smoking cessation with patient: more than 10 minutes Time Spent with Patient Time attestation: Total time spent providing and/or coordinating discharge services: Physical Exam Vital Signs: Vital Signs: Vital Signs Temp Pulse Resp BP Pulse Ox 12/06/19 07:42 98.6 F 92 17 101/50 L 92 12/06/19 04:00 97.9 F 98 16 119/61 90 L 12/06/19 01:00 98.1 F 101 H 18 113/60 92 12/05/19 21:53 101 H 119/75 12/05/19 19:44 97.3 F 101 H 19 119/75 96 12/05/19 13:00 97.8 F 101 H 19 100/59 L 94 Body Mass Index 28.7 Const: General: cooperative, healthy appearing and no acute distress Resp: Effort & Inspection: normal respiratory effort and able to speak in complete sentences Cardio: Rate: regular rate Peripheral pulses: Peripheral pulses 2+ throughout GI: Inspection: Yes normal to inspection Palpation (GI): Soft to palpation Skin: General skin exam: no rashes or lesions noted Extrem: Other: Left hip incision clean dry and intact. No erythema or drainage. Sensation intact. DS: Data Data Completed and Pending Completed studies during hospitalization [Text1]: Pending at discharge 12/04/19 09:14 Surgical [PTH] Routine Discharge Plan Discharge Patient Disposition: Home Health Service Referrals: Federico Cerrato PA-C [Physician Senior [employer]] - (2 week f/u with Orthopedics) Discharge Medications: New acetaminophen 325 mg Tablet 650 mg PO Q6H 30 Days Qty: 240 RF: 0 aspirin 325 mg Tablet 325 mg PO BID 30 Days Qty: 60 RF: 0 oxycodone 10 mg tablet 10 mg PO Q6H 7 Days Qty: 28 RF: 0 Continued clonidine HCl 0.1 mg tablet 0.1 mg PO TID RF: 0 trazodone 50 mg tablet 50 mg PO BEDTIME RF: 0 lisinopril 20 mg tablet 20 mg PO DAILY RF: 0 omeprazole 40 mg capsule,delayed release(DR/EC) 40 mg PO DAILY RF: 0 amlodipine 10 mg tablet 10 mg PO DAILY RF: 0 diazepam 10 mg tablet 10 mg PO TID PRN (Reason: anxiety) RF: 0 duloxetine 30 mg capsule,delayed release(DR/EC) 30 mg PO BID RF: 0 pregabalin 200 mg capsule 200 mg PO BID RF: 0 ramelteon 8 mg tablet 8 mg PO BEDTIME RF: 0 Discharge Orders: Discharge Order (Routine); Ordered 12/06/19 Ordered By: Federico Cerrato Diet: regular diet Activity on Discharge: Use cane or walker Activity Restrictions/Additional Instructions: * Physical Therapy for Total hip arthroplasty: no precautions, gait training, ROM, strength * Limit stair climbing * No showering, no tub bath-keep dressing clean, dry and intact * No driving x6 weeks * Continue Aspirin 325mg tabs twice a day x 4 weeks * Follow up with [facility] in 2 weeks Visit Report Forms: Patient Portal Discharge page Care Plan Goals: Restore function of left hip Health Concerns: none Plan of Treatment: Physical Therapy Pain management DVT prophylaxis
--- NOTE | 2019-12-06 10:29 | P.F2F_ITS ---
Service Date Service Date: 12/06/19 Reasons for Services MD overseeing care: Sharon Fink MD Homebound: Leaving the home is medically contraindicated at this time without the asist of a device and/or another person due th the listed conditions above and below. Certification: Based on the above findings, I certify that this patient is confined to the home and needs intermittent shelter care, physical therapy and/or speech therapy, or continues to need occupational therapy. The patient is under my care, and I have initiated the establishment of the plan of care. The patient will be followed by a physician who will periodically review the plan of care.
--- NOTE | 2019-12-06 10:33 | MHC.CM.PN ---
nurse care manger note electronic medical record reviewed along with case discussed with staff nurse , physical theaprist met with patient he will be discharged home today where he lives with his sister ivon mendoza the following [facility] discharge home [facility] physical theapry to start this wednesday pcp and surgical follow up per discharge instruxtions transportation family
--- NOTE | 2019-12-06 10:35 | HO.PM.IMPN ---
Subjective Subjective Date of Service: 12/06/19 Interval History: hip pain Respiratory Respiratory: Reports no additional respiratory complaints Gastrointestinal Gastrointestinal: Reports no additional gastrointestinal complaints Physical Exam Vital Signs: Vital Signs: Vital Signs Temp Pulse Resp BP Pulse Ox 12/06/19 07:42 98.6 F 92 17 101/50 L 92 12/06/19 04:00 97.9 F 98 16 119/61 90 L 12/06/19 01:00 98.1 F 101 H 18 113/60 92 12/05/19 21:53 101 H 119/75 12/05/19 19:44 97.3 F 101 H 19 119/75 96 12/05/19 13:00 97.8 F 101 H 19 100/59 L 94 Body Mass Index 28.7 General: AO X 3, no acute distress Resp: CTA bilateral CVS: S1,S2,RRR GI: soft, non tender, non distended Neuro: motor grossly intact Psych: appropriate affect Objective Data Current Medications Generic Name Dose Route Start Last Admin Trade Name Freq PRN Reason Stop Dose Admin Acetaminophen 650 mg 12/04/19 13:00 12/06/19 06:30 Acetaminophen 325 Mg Tablet PO 650 mg Q6H NINO Administration Amlodipine Besylate 10 mg 12/05/19 09:00 12/06/19 08:17 Amlodipine Besylate 10 Mg Tablet PO Not Given DAILY NINO Protocol Aspirin 325 mg 12/05/19 21:00 12/06/19 08:15 Aspirin 325 Mg Tablet PO 325 mg BID NINO Administration Clonidine HCl 0.1 mg 12/04/19 23:45 12/06/19 08:16 Clonidine Hcl 0.1 Mg Tablet PO Not Given TID NINO Protocol Diazepam 10 mg 12/04/19 23:54 Diazepam 10 Mg Tablet PO TID PRN anxiety Duloxetine HCl 30 mg 12/04/19 23:45 12/06/19 08:15 Duloxetine Hcl 30 Mg Capsule.Dr PO 30 mg BID NINO Administration Lisinopril 20 mg 12/05/19 09:00 12/06/19 08:16 Lisinopril 20 Mg Tablet PO Not Given DAILY NINO Protocol Morphine Sulfate 2 mg 12/04/19 12:25 12/05/19 06:09 Morphine Sulfate 2 Mg/Ml Cartridge IVPUSH 2 mg Q2H PRN Administration Pain, Severe (Pain Scale 7-10) Naloxone HCl 0.2 mg 12/04/19 12:25 Naloxone Hcl 0.4 Mg/Ml Vial IVPUSH Q2M PRN Excessive sedation or RR < 8 Omeprazole 40 mg 12/05/19 09:00 12/06/19 08:15 Omeprazole 40 Mg Capsule.Dr PO 40 mg DAILY NINO Administration Oxycodone HCl 10 mg 12/04/19 13:00 12/06/19 06:30 Oxycodone Hcl Immed Release 5 Mg Tablet PO 10 mg Q6H NINO Administration Pregabalin 200 mg 12/04/19 23:45 12/06/19 08:15 Pregabalin 200 Mg Capsule PO 200 mg BID NINO Administration Sodium Chloride 3 ml 12/04/19 16:00 12/06/19 07:21 0.9 % Sodium Chloride Flush 3 Ml Syringe IVFLUSH 3 ml QSHIFT NINO Administration Trazodone HCl 50 mg 12/04/19 23:45 12/05/19 21:53 Trazodone Hcl 50 Mg Tablet PO 50 mg BEDTIME NINO Administration Labs CBC & Chem 7: 12/05/19 05:52 12/05/19 05:52 Assessment and Plan (1) History of total left hip replacement: Problem details: Mr. Stoll is a 59-year-old gentleman who presented to the office for pain in the left hip he was found have osteoarthritis of the left hip and failed all conservative measures therefore he consented to move forward with left hip arthroplasty. Status: Acute Assessment and Plan: 59-year-old man admitted by Orthopedic surgery and is status post left total hip arthroplasty. Left total hip arthroplasty. Management as per surgical team. Hypertension Stable blood pressure. Continue clonidine, lisinopril, amlodipine CKD stable GERD. Continue PPI. Depression cymbalta lyrica
--- NOTE | 2019-12-08 16:57 | OP_ITS ---
SURGEON: Sharon Fink MD PREOPERATIVE DIAGNOSIS: Osteoarthritis, left hip. POSTOPERATIVE DIAGNOSIS: Osteoarthritis, left hip. PROCEDURE PERFORMED: Left total hip arthroplasty - [place] Accolade II, size 7 x 132 femur, 56 mm Tritanium acetabulum, 36 mm x 0 degree Biolox head, 36 mm acetabular flat liner. ESTIMATED BLOOD LOSS: COMPLICATIONS: ANESTHESIA: ASSISTANTS: MARLENY May. SPECIMENS: CLINICAL NOTE: This gentleman who has had a previous right total hip arthroplasty done elsewhere, returns with significant problems involving the left hip. He has failed nonoperative management. Therefore, after explaining the risks, benefits, and alternatives and answering all his questions, it was mutually agreed upon to carry out the following procedure. DESCRIPTION OF PROCEDURE: Under a general anesthetic, the patient was placed in the right lateral decubitus position with the left hip free. The left hip was then prepped and draped in standard fashion with the left leg free. Surgical time-out was then performed. The patient was identified, procedure confirmed, site confirmed. Medical analogy and history reviewed. Preoperative antibiotics were given. Standard DVT prophylaxis was in place. Tranexamic acid was given as well. All other items were discussed and agreed upon. Standard anterolateral approach to the hip was carried out, taken down through subcutaneous tissues. Hemostasis was achieved along the way using electrocautery. This brought us down to the level of the fascia sarah, which was divided along the length of the incision. The abductor musculature was then identified. The anterior two-thirds were elevated off the greater trochanter through tendon down over the capsule to the level of the acetabulum. The capsulectomy was then performed. The hip was dislocated. It was resected according to preoperative templating and we turned our attention to the acetabulum itself. The remaining of the labrum and soft tissues were removed. The acetabular fossa was identified. Starting with a 54 mm reamer, it was medialized as well as enlarged. It was then sequentially reamed up to a 56 mm size, which brought us down to the level of the acetabular floor that had circumferential bleeding. A trial reduction was performed with 56 mm trial. It had excellent fit with the alignment that was required. Therefore, the 56 mm permanent acetabulum was selected and brought up on the table. The trial components were removed. It was thoroughly irrigated. The permanent component was brought up on the table. It was press-fit into place in appropriate alignment. A trial 0 degree liner for 36 mm head was placed and we turned our attention to the femur. Box osteotome was used in standard fashion. T-reamer was used to sound the canal, it was sequentially broached up to a size 7 with an excellent fit and fill, and medial and lateral fill as well. A trial reduction was then performed with the 132 degree collar and the 36 mm standard head. This demonstrated excellent alignment, leg lengths, and full motion instability, and therefore, the size 7 Accolade II stem with 136 degree neck as well as the 36 mm standard Biolox head and 36 mm flat acetabular liner was selected and brought up on the table. The hip was re-dislocated again. The trial components were all removed. The acetabulum was thoroughly irrigated. The permanent liner put into place. Following this, the femur was thoroughly irrigated. The permanent component was tapped into place with the same fit and fill and rotational stability as the trial. Carrasco taper was cleaned and dried. The head was tapped into place. The hip was relocated for final time and again had excellent leg lengths, full range of motion, and stability. Therefore, we proceeded to closure. Wound was thoroughly irrigated. The abductor musculature was repaired with #2 Dexon. Fascia sarah closed with #2 Quill suture. Skin approximated using interrupted 2-0 Dexon. Skin was closed with ramirez. Sterile dressing was then applied. The patient then had the anesthesia reversed. They transferred supine to the room bed and taken to the recovery room in good condition. Intraoperatively, there was approximately 100 mL blood loss. Second unit of tranexamic acid was given at the time of closure. There were no complications. MD TRAN Buckley/PATTY / [id number]
== END 2019-12-06 12:03 | disposition home health service (06) | DRG 470 ==
LOC: HO.SSSA 05:34 → HO.S3 09:47
PROVIDERS: Nurse Practitioner; Nurse Practitioner Acute Care; Student in an Organized Health Care Education/Training Program; Admitting Provider Orthopaedic Surgery; PCP Physician Assistant Medical; Visit Provider Orthopaedic Surgery
PROC: 0SRB0JA Replacement of Left Hip Joint with Synthetic Substitute, Uncemented, Open Approach (ICD-10-PCS; CPT 27130; principal; 2019-12-04 07:30)
DX: M16.12 Unilateral primary osteoarthritis, left hip (principal); N18.4 Chronic kidney disease, stage 4 (severe); F41.9 Anxiety disorder, unspecified; F32.9 Major depressive disorder, single episode, unspecified; Z86.19 Personal history of other infectious and parasitic diseases; G47.30 Sleep apnea, unspecified; I12.9 Hypertensive chronic kidney disease with stage 1 through stage 4 chronic kidney disease, or unspecified chronic kidney disease; Z20.828 Contact with and (suspected) exposure to other viral communicable diseases; Z79.899 Other long term (current) drug therapy
CPT/HCPCS: 36415; 73502; 80048; 85025; 86850; 86900; 86901; 87635; 87640; 87641; 88304; 88311; 93005; 97110; 97116; 97162; 97166; 97535; C1776; J0131; J0690; J1100; J1170; J1885; J2250; J2270; J2370; J2405; J3010

== ENCOUNTER → 2019-12-20 13:41 | Outpatient (BNVA) | payer OTHER, SELFPAY | PROVIDERS: Visit Provider Physician Assistant | DX: Z47.1 Aftercare following joint replacement surgery (principal); Z96.642 Presence of left artificial hip joint | CPT/HCPCS: 99212 ==

== ENCOUNTER → 2020-01-17 13:45 | Outpatient (BNVA) | payer OTHER, SELFPAY | PROVIDERS: Visit Provider Orthopaedic Surgery | DX: Z96.642 Presence of left artificial hip joint (principal) | CPT/HCPCS: 99212 ==

== ENCOUNTER → 2020-02-05 16:03 | Outpatient (BNVA) | payer OTHER, SELFPAY | PROVIDERS: Visit Provider Anesthesiology | DX: M51.36 Other intervertebral disc degeneration, lumbar region (principal); M54.5 Low back pain; G89.4 Chronic pain syndrome; F19.11 Other psychoactive substance abuse, in remission; T84.84XA Pain due to internal orthopedic prosthetic devices, implants and grafts, initial encounter; Z96.642 Presence of left artificial hip joint; Z96.641 Presence of right artificial hip joint | CPT/HCPCS: 99212 ==

== ENCOUNTER 2020-03-05 13:11 | Outpatient (REF) | payer OTHER, SELFPAY ==
--- NOTE | 2020-03-05 13:50 | XR_ITS ---
EXAMINATION: XR HIP, LEFT CLINICAL INFORMATION: Pain left hip. COMPARISON: None TECHNIQUE: Two views of the left hip. AP pelvis one view FINDINGS: Pelvis: There is bilateral hip prosthesis in satisfactory alignment. SI joints are symmetrical and normal. No prosthetic loosening seen in either hip joints. Left hip: There is a total left hip prosthesis is in alignment. No prosthetic loosening or lucency seen. No fracture noted. Bony hypertrophic changes are seen along the lateral acetabulum. The soft tissues are normal. XR/XR hip LT w [id number] IMPRESSION: Bilateral total hip prosthesis and alignment. The left hip prosthesis is in alignment without any loosening or lucency. Hypertrophic bony changes are seen along the lateral acetabulum.
== END 2020-03-05 13:12 | disposition home or self-care (01) ==
LOC: HO.HOSX 13:11
PROVIDERS: Visit Provider Orthopaedic Surgery
DX: M25.552 Pain in left hip (principal); Z96.642 Presence of left artificial hip joint
CPT/HCPCS: 73502; 99212

== ENCOUNTER → 2020-03-06 09:56 | Outpatient (BNVA) | payer OTHER, SELFPAY | PROVIDERS: Visit Provider Anesthesiology | DX: M51.36 Other intervertebral disc degeneration, lumbar region (principal); M54.5 Low back pain; G89.4 Chronic pain syndrome; F19.11 Other psychoactive substance abuse, in remission; T84.84XA Pain due to internal orthopedic prosthetic devices, implants and grafts, initial encounter; Z96.642 Presence of left artificial hip joint; Z96.641 Presence of right artificial hip joint | CPT/HCPCS: 99212 ==